=== PATIENT | female | born 1995 | race Caucasian/White ===

== ENCOUNTER 2016-10-01 20:04 | Emergency (ER) | payer MEDICAID, OTHER ==
[~2016-10-01] VITALS: Ht 162.6 cm; Wt 78.0 kg
[~2016-10-01 20:04] MED LIST: CETI10 PO
[2016-10-01 20:06] VITALS: BP 147/74; PULSE 90; RESP 16; TEMP 99.3; O2SAT 99
--- NOTE | 2016-10-01 20:17 | PD ---
Physical Exam Time Seen by Provider: 20:13 Narrative 21 y/o female here for evaluation of lower back/pelvic pain, vaginal bleeding, vaginal pain. Symptoms started 2-3 weeks ago. Vital signs reviewed. Seen at triage desk. Awaiting bed placement. Data Data Last Documented VS Vital Signs Date Time Temp Pulse Resp B/P Pulse Ox O2 Delivery O2 Flow Rate FiO2 10/01/16 20:06 99.3 90 16 147/74 99 Room Air [facility] Medical Record Reviewed: Yes Supervised Visit with SUREKHA: Maximo Grimes Oct 01, 2016 20:17
[2016-10-02] MEDS ORDERED: SODIUM CHLORIDE 0.9% FLUSH 10 ML FLUSH IVF PRN (01:00)
[2016-10-02] MEDS ORDERED: SODIUM CHLOR 0.9% 1000 ML INJ 1,000 ML IV ONE (01:00)
[2016-10-02 01:11] LABS: AUTOMATED NEUTROPHIL # 7.3 TH/MM3 (1.8-7.7); BASOPHIL % 0.4 % (0.0-2.0); EOSINOPHIL # 0.2 TH/MM3 (0-0.4); EOSINOPHIL % 1.7 % (0.0-4.0); HEMATOCRIT 38.5 % (35.0-46.0); HEMO FLAGS DIFF FINAL; LYMPH % 21.5 % (9.0-44.0); LYMPHOCYTE # 2.3 TH/MM3 (1.0-4.8); MEAN CELL VOLUME 93.3 FL (80.0-100.0); MEAN CORPUSCULAR HEMOGLOBIN 32.6 PG (27.0-34.0); MEAN CORPUSCULAR HGB CONC 34.9 % (32.0-36.0); MONO % 7.8 % (0.0-8.0); NEUT % 68.6 % (16.0-70.0); PLATELET COUNT 197 TH/MM3 (150-450); RED BLOOD COUNT 4.12 MIL/MM3 (4.00-5.30); RED CELL DISTRIBUTION WIDTH 13.2 % (11.6-17.2); WHITE BLOOD COUNT 10.6 TH/MM3 (4.0-11.0)
[2016-10-02 01:34] LABS: ALT (GPT) 14 U/L (10-53); ANION GAP 11 MEQ/L (5-15); AST (GOT) 9 U/L (15-37); BICARBONATE 24.3 MEQ/L (21.0-32.0); BLOOD UREA NITROGEN 6 MG/DL (7-18); CHLORIDE 105 MEQ/L (98-107); GLOMERULAR FILTRATION RATE 99 ML/MIN (>89); POTASSIUM 3.3 MEQ/L (3.5-5.1); SODIUM (NA) 140 MEQ/L (136-145)
[2016-10-02 01:38] LABS: ALKALINE PHOSPHATASE 54 U/L (45-117); BETA HCG QUANT LESS THAN 1 MIU/ML (0-5); TOTAL BILIRUBIN ADULT 0.6 MG/DL (0.2-1.0)
--- NOTE | 2016-10-02 02:05 | PD ---
HPI Chief Complaint: Bleeding Time Seen by Provider: : Travel History International Travel<30 days: No Contact w/Intl Traveler<30days: No Traveled to known affect area: No History of Present Illness HPI Patient is a 21-year-old female who presents to emergency room with complaints of irregular vaginal bleeding. Patient reports that she has the implant and reports that she has abnormal menstrual cycles. Patient reports that she missed her period 2-3 weeks ago and began having vaginal bleeding one week ago. Patient reports that she has had heavy menstrual bleeding, reports that she has increased pains to her lower pelvis. Patient reports concerns as she may be miscarrying or having ovarian cysts. Reports history of ovarian cysts in the past. Patient denies any lightheadedness or dizziness. Patient denies any nausea or vomiting, denies any fevers or chills. Patient with no other complaints. PFSH Past Medical History Cancer: No Cardiovascular Problems: No Diabetes: No Endocrine: No Genitourinary: No Hepatitis: No Hiatal Hernia: No Immune Disorder: No Musculoskeletal: No Neurologic: Yes (migraines) Psychiatric: No Reproductive: No Respiratory: No Thyroid Disease: No ?: Unknown LMP: 2-3 MONTHS PRIOR Past Surgical History Abdominal Surgery: No AICD: No Body Medical Devices: IUD Cardiac Surgery: No Ear Surgery: No Endocrine Surgery: No Eye Surgery: No Genitourinary Surgery: No Gynecologic Surgery: No Joint Replacement: No Oral Surgery: No Pacemaker: No Thoracic Surgery: No Social History Alcohol Use: Yes Tobacco Use: Yes Substance Use: No Allergies-Medications (Allergen,Severity, Reaction): Coded Allergies: Meloxicam (Verified Allergy, Severe, 10/01/16) SHE IS NOT SURE WHETHER IS WAS THROAT SWELLING OR CHEST PAIN Robaxin (Verified Allergy, Severe, 10/01/16) SHE DOES NOT KNOW REACTION, SHE HAD CHEST PAIN AND THROAT SWELLING Reported Meds & Prescriptions Reported Meds & Active Scripts Active Macrobid (Nitrofurantoin Monoh/Nitrofur Macro) 100 Mg Cap 100 Mg PO BID 10 Days Reported Zyrtec 10 Mg Tab (Cetirizine HCl) 10 Mg Tab 10 Mg PO DAILY Review of Systems General / Constitutional: No: Fever Eyes: No: Visual changes HENT: No: Headaches Cardiovascular: No: Chest Pain or Discomfort Respiratory: No: Shortness of Breath Gastrointestinal: Positive: Abdominal Pain, No: Nausea, Vomiting Genitourinary: Positive: Pelvic Pain, Vaginal Bleeding, No: Dysuria Musculoskeletal: No: Pain Skin: No Rash Neurologic: No: Weakness Psychiatric: No: Depression Endocrine: No: Polydipsia Hematologic/Lymphatic: No: Easy Bruising Physical Exam Narrative GENERAL: NAD SKIN: Focused skin assessment warm/dry. HEAD: Atraumatic. Normocephalic. EYES: Pupils equal and round. No scleral icterus. No injection or drainage. ENT: No nasal bleeding or discharge. Mucous membranes pink and moist. NECK: Trachea midline. No JVD. CARDIOVASCULAR: Regular rate and rhythm. No murmur appreciated. RESPIRATORY: No accessory muscle use. Clear to auscultation. Breath sounds equal bilaterally. GASTROINTESTINAL: Abdomen soft, non-tender, nondistended. Hepatic and splenic margins not palpable. : Pelvic exam performed with RN at bedside. closed cervical os, small amount of blood in vaginal vault, right sided adnexal tenderness, no CMT MUSCULOSKELETAL: No obvious deformities. No clubbing. No cyanosis. No edema. NEUROLOGICAL: Awake and alert. No obvious cranial nerve deficits. Motor grossly within normal limits. Normal speech. PSYCHIATRIC: Appropriate mood and affect; insight and judgment normal. Data Data Last Documented VS Vital Signs Date Time Temp Pulse Resp B/P Pulse Ox O2 Delivery O2 Flow Rate FiO2 10/01/16 20:06 99.3 90 16 147/74 99 Room Air Orders Beta Hcg (Quant/Titer) (10/02/16 00:52) Complete Blood Count With Diff (10/02/16 00:52) Comprehensive Metabolic Panel (10/02/16 00:52) Urinalysis - C+S If Indicated (10/02/16 00:52) Iv Access Insert/Monitor (10/02/16 00:52) Sodium Chloride 0.9% Flush (Ns Flush) (10/02/16 01:00) Ed Urine Pregnancytest Poc (10/02/16 00:52) Sodium Chlor 0.9% 1000 Ml Inj (Ns 1000 M (10/02/16 01:00) Wet Prep Profile (10/02/16 01:33) Us Pelvis Comp W Doppler (10/02/16 01:33) Gc And Chlamydia Pcr (10/02/16 01:33) Potassium Chloride (Kcl) (10/02/16 02:15) Urine Culture (10/02/16 01:50) Ceftriaxone Inj (Rocephin Inj) (10/02/16 03:30) Labs Laboratory Tests Test 10/02/16 10/02/16 10/02/16 01:00 01:50 02:20 White Blood Count 10.6 TH/MM3 Red Blood Count 4.12 MIL/MM3 Hemoglobin 13.4 GM/DL Hematocrit 38.5 % Mean Corpuscular Volume 93.3 FL Mean Corpuscular Hemoglobin 32.6 PG Mean Corpuscular Hemoglobin 34.9 % Concent Red Cell Distribution Width 13.2 % Platelet Count 197 TH/MM3 Mean Platelet Volume 10.4 FL Neutrophils (%) (Auto) 68.6 % Lymphocytes (%) (Auto) 21.5 % Monocytes (%) (Auto) 7.8 % Eosinophils (%) (Auto) 1.7 % Basophils (%) (Auto) 0.4 % Neutrophils # (Auto) 7.3 TH/MM3 Lymphocytes # (Auto) 2.3 TH/MM3 Monocytes # (Auto) 0.8 TH/MM3 Eosinophils # (Auto) 0.2 TH/MM3 Basophils # (Auto) 0.0 TH/MM3 CBC Comment DIFF FINAL Differential Comment Sodium Level 140 MEQ/L Potassium Level 3.3 MEQ/L Chloride Level 105 MEQ/L Carbon Dioxide Level 24.3 MEQ/L Anion Gap 11 MEQ/L Blood Urea Nitrogen 6 MG/DL Creatinine 0.73 MG/DL Estimat Glomerular Filtration 99 ML/MIN Rate Random Glucose 82 MG/DL Calcium Level 9.4 MG/DL Total Bilirubin 0.6 MG/DL Aspartate Amino Transf 9 U/L (AST/SGOT) Alanine Aminotransferase 14 U/L (ALT/SGPT) Alkaline Phosphatase 54 U/L Total Protein 8.5 GM/DL Albumin 4.6 GM/DL Human Chorionic Gonadotropin, LESS THAN 1 Quant MIU/ML Urine Color YELLOW Urine Turbidity CLOUDY Urine pH 6.0 Urine Specific [place] 1.023 Urine Protein 300 mg/dL Urine Glucose (UA) NEG mg/dL Urine Ketones 40 mg/dL Urine Occult Blood MOD Urine Nitrite NEG Urine Bilirubin NEG Urine Urobilinogen 2.0 MG/DL Urine Leukocyte Esterase LARGE Urine RBC /hpf Urine WBC /hpf Urine Squamous Epithelial 3 /hpf Cells Urine Bacteria OCC /hpf Urine Mucus MOD /lpf Microscopic Urinalysis Comment CULTURE INDICATED Clue Cells (Wet Prep) NONE SEEN Vaginal Trichomonas (Wet Prep) NONE SEEN Vaginal Yeast (Wet Prep) NONE SEEN MDM Medical Decision Making Medical Screen Exam Complete: Yes Emergency Medical Condition: Yes Interpretation(s) Vital Signs Date Time Temp Pulse Resp B/P Pulse Ox O2 Delivery O2 Flow Rate FiO2 10/01/16 20:06 99.3 90 16 147/74 99 Room Air Differential Diagnosis Differential includes anemia, irregular vaginal bleeding, menstrual cycle, threatened miscarriage, cervicitis, ovarian cyst, ovarian torsion Narrative Course Patient is a 21-year-old female who presents to emergency room with complaints of irregular vaginal bleeding for the past week. Patient concerned that she may be miscarrying versus having ovarian cysts. Patient reports pain to her liver pelvis. Lab work including hCG Quant ordered, pelvic ultrasound ordered. VSS. Will continue to monitor patient CBC & BMP Diagram 10/02/16 01:00 Hemoglobin stable at 13.4, potassium 3.3 will replete Last Impressions Pelvis Ultrasound 10/02/16 0133 Signed Impressions: Service Date/Time: Sunday, October 02, 2016 02:56 - CONCLUSION: 1. Unremarkable ultrasound examination of the pelvis. Matti Iniguez MD I reviewed all labs and studies with patient in detail as well as incidental findings. Discussed with patient need to follow-up with cultures from today. Patient will follow-up with her PEOPLE GREETER and will return to the emergency room as needed. Diagnosis Primary Impression: Vaginal bleeding Additional Impressions: UTI (urinary tract infection) Qualified Code: N30.01 - Acute cystitis with hematuria Hypokalemia Patient Instructions: General Instructions Additional Instructions: Please follow up with your primary care doctor Return to ER as needed Please follow up with your audio visual technician Please follow up with all cultures from today Return to ER if symptoms worsen or persist Med/Other Pt SpecificInfo: Prescription(s) given Scripts Nitrofurantoin Monohydrate Macrocrystals (Macrobid)100 Mg [id number] Mg PO BID 10 Days Ref 0 Prov:Maryuri Barbosa DO 10/02/16 Disposition: 01 DISCHARGE HOME Condition: Stable Maryuri Barbosa DO Oct 02, 2016 02:05
[2016-10-02] MEDS ORDERED: POTASSIUM CHLORIDE 10 MEQ CONTROLLED RELEASE TAB PO ONE (02:15)
[2016-10-02 02:18] LABS: BACTERIA, URINE OCC /hpf; BLOOD, URINE MOD (NEG); COMMENT (UR) CULTURE INDICATED; CULTURE IF INDICATED CULTURE INDICATED; GLUCOSE,URINE NEG (NEG); KETONE, URINE 40 mg/dL (NEG); MUCUS URINE MOD /lpf (OCC); NITRITE,URINE NEG (NEG); SQUAMOUS EPITHELIAL CELL URINE 3 /hpf (0-5); URINE COLOR YELLOW (YELLW/STRAW)
[2016-10-02] MEDS ORDERED: cefTRIAXone INJ 1,000 MG in SODIUM CHLORIDE 0.9% INJ 100 ML IV ONE (03:30)
--- NOTE | 2016-10-02 04:17 | RADRPT ---
EXAM DATE/TIME: 10/02/2016 02:56 [place] COMPARISON: No previous studies available for comparison. INDICATIONS : Pelvic pain and bleeding. MEDICAL HISTORY : . Migraines. SURGICAL HISTORY : None. ENCOUNTER: Initial ACUITY: 2 weeks PAIN SCORE: 5/10 LOCATION: Bilateral pelvis MEASUREMENTS: UTERUS: 7.7 x 4.8 x 3.2 cm ENDOMETRIAL STRIPE: 3 mm RIGHT OVARY: 5.0 x 2.5 x 3.0 cm LEFT OVARY: 4.7 x 3.5 x 2.4 cm FINDINGS: Ultrasound pelvis and uterus are normal size, shape and echogenicity without focal lesion. No free fl uid or adnexal masses are seen. The ovaries are normal in size and shape without evidence of focal ma ss. No adnexal masses are identified. There is normal Doppler flow bilaterally. CONCLUSION: 1. Unremarkable ultrasound examination of the pelvis. Matti Iniguez MD on October 02, 2016 at 4:14 Board Certified Radiologist. This report was verified electronically.
[2016-10-02] MEDS ORDERED: MACR100C2 PO (04:32)
[2016-10-02 06:59] LABS: CHLAMYDIA PCR NOT DETECTED (NOT DETECT); NEISSERIA PCR DETECTED (NOT DETECT)
== END 2016-10-02 04:58 | disposition home or self-care (01) ==
LOC: NEPC 20:04
DX: N93.9 Abnormal uterine and vaginal bleeding, unspecified (principal); E87.6 Hypokalemia; N30.01 Acute cystitis with hematuria; B96.89 Other specified bacterial agents as the cause of diseases classified elsewhere
CPT/HCPCS: 76856; 80053; 81001; 84702; 84703; 85025; 87086; 87210; 87491; 87591; 93975; 96374; 99285; J0696; J7030

== ENCOUNTER 2016-10-13 14:54 | Emergency (ER) | payer SELFPAY ==
[~2016-10-13] VITALS: Ht 162.6 cm; Wt 78.1 kg
[~2016-10-13 14:54] MED LIST changes: +MACR100C2 PO
[2016-10-13 15:03] VITALS: BP 124/60; PULSE 90; RESP 16; TEMP 99.4; O2SAT 98
--- NOTE | 2016-10-13 15:40 | PD ---
HPI Chief Complaint: Eye Problems/Injury Time Seen by Provider: 15:25 Travel History International Travel<30 days: No Contact w/Intl Traveler<30days: No Traveled to known affect area: No History of Present Illness HPI This is a 21-year-old female who presents for evaluation of bilateral eye redness, irritation, drainage and soft tissue swelling. Symptoms initially started in the left eye 6 days ago. Symptoms then began in her right eye. She has been using some type of previously prescribed antibiotic ointment for her eyes and she has also been using Ti-Rocky however her symptoms have progressed which prompted evaluation. She endorses pain, itching with both eyes. She does not wear contacts or glasses. She has no other complaints at this time. PFSH Past Medical History Cancer: No Cardiovascular Problems: No Diabetes: No Endocrine: No Genitourinary: No Hepatitis: No Hiatal Hernia: No Immune Disorder: No Musculoskeletal: No Neurologic: Yes (migraines) Psychiatric: No Reproductive: No Respiratory: No Thyroid Disease: No ?: Not LMP: IMPLANTED BC Past Surgical History Abdominal Surgery: No AICD: No Body Medical Devices: IUD Cardiac Surgery: No Ear Surgery: No Endocrine Surgery: No Eye Surgery: No Genitourinary Surgery: No Gynecologic Surgery: No Joint Replacement: No Oral Surgery: No Pacemaker: No Thoracic Surgery: No Social History Alcohol Use: Yes Tobacco Use: Yes Substance Use: No Allergies-Medications (Allergen,Severity, Reaction): Coded Allergies: Meloxicam (Verified Allergy, Severe, SHE IS NOT SURE WHETHER IS WAS THROAT SWELLING OR CHEST PAIN, 10/13/16) Robaxin (Verified Allergy, Severe, SHE DOES NOT KNOW REACTION, SHE HAD CHEST PAIN AND THROAT, 10/13/16) Reported Meds & Prescriptions Reported Meds & Active Scripts Active Vigamox Opth Drops (Moxifloxacin Opth Drops) 0.5 % Soln 1 Drop EACH EYE QID 10 Days Review of Systems Except as stated in HPI: all other systems reviewed are Neg Physical Exam Narrative GENERAL: Well-developed well-nourished female who appears uncomfortable on initial examination. SKIN: Warm and dry. HEAD: Atraumatic. Normocephalic. EYES: Examination of the eyes reveals edematous eyelids bilaterally with some chemosis, significant conjunctival injection and mucopurulent discharge bilaterally. Posterior reactive to light. ENT: No nasal bleeding or discharge. Mucous membranes pink and moist. NECK: Trachea midline. No JVD. CARDIOVASCULAR: Regular rate and rhythm. No murmur appreciated. RESPIRATORY: No accessory muscle use. Clear to auscultation. Breath sounds equal bilaterally. GASTROINTESTINAL: Abdomen soft, non-tender, nondistended. Hepatic and splenic margins not palpable. MUSCULOSKELETAL: No obvious deformities. No clubbing. No cyanosis. No edema. NEUROLOGICAL: Awake and alert. No obvious cranial nerve deficits. Motor grossly within normal limits. Normal speech. PSYCHIATRIC: Appropriate mood and affect; insight and judgment normal. Data Data Last Documented VS Vital Signs Date Time Temp Pulse Resp B/P Pulse Ox O2 Delivery O2 Flow Rate FiO2 10/13/16 15:03 99.4 90 16 124/60 98 Orders Gc Culture Only (10/13/16 15:24) Moxifloxacin 0.5% Opht Soln (Vigamox 0.5 (10/13/16 16:00) Azithromycin Powd Pack (Zithromax Powd P (10/13/16 16:00) Ceftriaxone Inj (Rocephin Inj) (10/13/16 16:00) Lidocaine 1% Inj (50 Ml) (Xylocaine 1% I (10/13/16 16:00) Mandatory Outpatient Referral (10/13/16 15:56) MDM Medical Decision Making Medical Screen Exam Complete: Yes Emergency Medical Condition: Yes Medical Record Reviewed: Yes Differential Diagnosis Conjunctivitis, gonococcal conjunctivitis, orbital cellulitis, acute allergic reaction Narrative Course 20-year-old female presents with bilateral eye drainage, irritation, soft tissue swelling, redness for the past 6 days. On initial examination she appears to have mucopurulent drainage, chemosis, significant conjunctival injection bilaterally with some edema of the eyelids. Her symptoms are certainly concerning for severe conjunctivitis, possibly gonococcal. The patient was actually seen at [facility] in October 02 for vaginal bleeding. Her gonorrhea PCR from that days positive. It appears that she received a dose of Rocephin during her ED course. Plan today is for gonorrhea culture. I will discuss with the straightener gun parts infrastructure consultant. Discussed with Dr. Gagnon who recommends Vigamox ophthalmic drops QID an outpatient follow-up in her office in the next one or 2 days. A mandatory outpatient referral has been placed. I discussed these recommendations with the patient in detail. She is being given a dose of azithromycin and Rocephin here. She is stable for discharge. Diagnosis Primary Impression: Bilateral conjunctivitis Qualified Code: H10.33 - Acute bacterial conjunctivitis of both eyes Referrals: Urszula Gagnon MD Additional Instructions: Medication as prescribed. Follow-up with Dr. Gagnon in the next 1-2 days, call her office to make an appointment. Return for any emergent medical conditions. Med/Other Pt SpecificInfo: Prescription(s) given Scripts Moxifloxacin Opth Drops (Vigamox Opth Drops)0.5 % Soln1 Drop EACH EYE QID 10 Days Ref 0 Prov:Pollo Ashton MD 10/13/16 Disposition: 01 DISCHARGE HOME Condition: Stable Maximo Durán Oct 13, 2016 15:40
[2016-10-13] MEDS ORDERED: LIDOCAINE HCL 1% 50 ML VIAL IM ONE (16:00)
[2016-10-13] MEDS ORDERED: cefTRIAXone 250 MG VIAL IM ONE (16:00)
[2016-10-13] MEDS ORDERED: AZITHROMYCIN PWD FOR SUSP 1 GM PACKET PO ONE (16:00)
[2016-10-13] MEDS ORDERED: MOXIFLOXACIN 0.5% OPHT SOLN 3 ML BTL EACH EYE ONE (16:00)
[2016-10-13] MEDS ORDERED: VIGA0.5D EACH EYE (16:06)
== END 2016-10-13 16:43 | disposition home or self-care (01) ==
LOC: PHEFT 14:54
DX: H10.33 Unspecified acute conjunctivitis, bilateral (principal); A54.31 Gonococcal conjunctivitis; Z72.0 Tobacco use
CPT/HCPCS: 87077; 87081; 87185; 96372; 99284; J0696